=== PATIENT | female | born 1975 | race Hispanic/Latino ===

== ENCOUNTER 2024-11-06 10:01 | Inpatient (IN) | payer BC ==
[2024-11-06 11:08] LABS: #Basophils 0.08 10x3/uL (0.0-0.2); #Eosinophils 0.11 10x3/uL (0.0-0.5); #Monocytes 0.46 10x3/uL (0.0-1.1); #Neutrophils 2.45 10x3/uL (1.5-8.4); %Basophils 1.6 % (0.0-2.0); %Eosinophils 2.2 % (0.0-6.0); %Lymphocytes 38.7 % (18.0-47.0); %Neutrophils 48.1 % (40.0-75.0); Hematocrit 19.9 % (34.9-44.5); Hemoglobin 5.2 g/dL (12.0-15.5); Mean Corpuscular HGB CONC 26.1 g/dL (32.0-36.0); Mean Corpuscular Hemoglobin 16.7 pg (27.0-33.0); Platelet Count 207 10x3/uL (150-450); RBC Distribution Width 27.9 % (11.5-14.5); Red Blood Cell (RBC) Count 3.11 10x6/uL (3.90-5.03); White Blood Cell (WBC) Count 5.1 10x3/uL (3.5-10.5)
[2024-11-06 11:09] LABS: Critical Call w/ Read Back SJOS.OD @1108
[2024-11-06 11:15] LABS: PTT 22.8 sec (22.0-33.0); Prothrombin Time 11.3 sec (9.5-12.1)
[2024-11-06 11:23] LABS: Troponin I Less than 0.010 ng/mL (< 0.028)
[2024-11-06 11:25] LABS: Anisocytosis MARKED = >30 cells (100X) (0-5/hpf); Microcytosis MODERATE=15-30 cells (100X) (0-5/hpf)
[2024-11-06 11:26] LABS: Hypochromia MODERATE=16-30 cells (100X) (0-5/hpf); Large Platelets SLIGHT (None Seen); Ovalocytes SLIGHT = 2-5 cells (100X) (0-1/hpf); Platelet Adequacy Comment Appears Adequate
[2024-11-06 13:40] VITALS: BMI 28.6
[2024-11-06] MEDS: Acetaminophen 325 MG TAB PO SCH (17:32)
[2024-11-06] MEDS: Tranexamic Acid 650 MG TAB PO SCH ×2 (20:00→23:16)
[2024-11-06 23:05] LABS: Hematocrit 25.7 % (34.9-44.5); Hemoglobin 7.5 g/dL (12.0-15.5)
[2024-11-07] MEDS: FLU (Fluarix Triv) TS24-25(6MOS UP)/PF 45 MCG/0.5 ML Syringe IM ONE (07:48)
[2024-11-07] MEDS: Tranexamic Acid 650 MG TAB PO SCH (08:00)
[2024-11-07 08:54] VITALS: BP 135/64; TEMP 98
[2024-11-07 13:29] LABS: Hematocrit 30.5 % (34.9-44.5); Hemoglobin 8.8 g/dL (12.0-15.5)
== END 2024-11-07 14:20 | disposition home or self-care (01) | DRG 812 ==
LOC: CSHERS 10:01 → CSHPP 13:24
PROVIDERS: ADMIT Obstetrics & Gynecology; ATTEND Obstetrics & Gynecology
PROC: 30233N1 Transfusion of Nonautologous Red Blood Cells into Peripheral Vein, Percutaneous Approach (ICD-10-PCS; principal; 2024-11-06)
DX: D64.9 Anemia, unspecified (principal); D25.9 Leiomyoma of uterus, unspecified; R07.89 Other chest pain; Z79.899 Other long term (current) drug therapy
CPT/HCPCS: 36415; 36430; 76856; 85014; 85018; 85610; 85730; 86850; 86900; 86901; 93005; P9016